=== PATIENT | male | born 1955 | race Caucasian/White ===

== ENCOUNTER → 2017-06-02 | Outpatient (CLI) | payer BC ==
[~2017-06-02] MED LIST: ATOR-24 PO; CALC625T13 PO; HYDC25 PO; IRBE-37 PO; METO50TA16 PO; STLS PO; ZNTT/150 PO
[2017-06-02 12:35] LABS: BASO % 0.2 %; BASO ABS # 0.02 K/uL (0-0.2); COMPLETE YES; EOS % 1.2 %; HEMATOCRIT 45.9 % (42-52); IG% 0.2 %; LYMPH % 44.2 %; LYMPH ABS # 3.91 K/uL (1.2-3.4); MEAN CELL VOLUME 92.9 fL (80-100); MEAN CORPUSCULAR HEMOGLOBIN 31.6 pg (25-34); MEAN PLATELET VOLUME 9.7 fL (7.4-10.4); MONO % 6.4 %; NEUT % 47.8 %; PLATELET COUNT 291 K/uL (130-400); RED BLOOD COUNT 4.94 M/uL (4.7-6.1); WHITE BLOOD COUNT 8.85 K/uL (4.8-10.8)
[2017-06-02 12:52] LABS: BLOOD UREA NITROGEN 12 mg/dl (7-18); GLUCOSE 94 mg/dl (70-99)
[2017-06-02 12:53] LABS: ALT/SGPT 37 U/L (12-78); BUN/CREATININE RATIO 13.5 (10-20); CALCIUM 8.5 mg/dl (8.5-10.1); CARBON DIOXIDE 25 mmol/L (21-32); CHLORIDE 107 mmol/L (98-107); CHOLESTEROL 142 mg/dl (0-200); CREATININE 0.92 mg/dl (0.60-1.40); POTASSIUM 3.7 mmol/L (3.5-5.1); SODIUM 139 mmol/L (136-145); TRIGLYCERIDES 252 mg/dl (0-150); VERY LOW DENSITY LIPOPROT CALC 50 mg/dl
[2017-06-02 12:55] LABS: ALKALINE PHOSPHATASE 84 U/L (45-117); AST/SGOT 20 U/L (15-37); CHOLESTEROL/HDL RATIO 3.9; HDL CHOLESTEROL 36 mg/dl; LDL CHOLESTEROL CALCULATED 56 mg/dl
[2017-06-02 12:58] LABS: ESTIMATED AVERAGE GLUCOSE 103 mg/dl; HA1C FLAG Normal (Normal)
== END | disposition home or self-care (01) ==
LOC: C.LABBFT 07:27
PROVIDERS: ATTEND Internal Medicine
DX: Z11.59 Encounter for screening for other viral diseases (principal); R73.03 Prediabetes; E78.00 Pure hypercholesterolemia, unspecified

== ENCOUNTER → 2017-06-16 | Outpatient (CLI) | payer BC ==
[~2017-06-16] MED LIST changes: +OPTIRAY 320 IV PRN
--- NOTE | 2017-06-16 13:07 | DIAGNOSTIC IMAGING REPORT ---
CT ABD/PELVIS IV AND ORAL CONT CLINICAL HISTORY: R10.11 Abdominal pain, RUQ (right upper quadrant)[id number] COMPARISON STUDY: 04/20/2014 TECHNIQUE: Following the IV administration of 120 mL of Optiray-320, CT scan of the abdomen and pelvis was performed from the lung bases to the proximal femurs. Images are reviewed in the axial, sagittal, and coronal planes. IV contrast was administered without complication. A dose lowering technique was utilized adhering to the principles of ALARA. CT DOSE: 1947.81 mGy.cm FINDINGS: Lower chest: There are mild basilar atelectatic changes present. Liver: There is mild hepatic steatosis. No focal masses are visualized. Gallbladder: Not visualized and presumed surgically absent Spleen: Normal in size and attenuation. Pancreas: Unremarkable. Adrenal glands: Unremarkable. Kidneys: There is symmetric renal cortical enhancement. The kidneys are normal in size without hydronephrosis. Bowel: There are no transition zones indicate bowel obstruction. There is colonic diverticulosis. There are no acute peridiverticular inflammatory changes. The appendix appears normal. There is a right upper quadrant bowel anastomotic suture line. Peritoneum: There is no intraperitoneal free air or abdominal ascites. There are postsurgical changes of a ventral hernia repair. There is a fat-containing peripherally calcified nodule within the central peritoneal fat. This appears smaller than on the prior study and consistent with an area of fat necrosis Vasculature: The abdominal aorta is normal in course and caliber. Adenopathy: None. Pelvic viscera: The bladder, and pelvic viscera are unremarkable. Skeletal structures: No destructive osseous lesions are seen. IMPRESSION: 1. No evidence of bowel obstruction. No evidence of free air 2. Normal appendix 3. Diverticulosis. No evidence of acute peridiverticular inflammatory change 3. Surgically absent gallbladder Electronically signed by: Best Weinberg M.D. 06/16/2017 1:06 PM Dictated Date/Time: 06/16/2017 1:03 PM
== END | disposition home or self-care (01) ==
LOC: C.CTS 11:56
PROVIDERS: ATTEND Internal Medicine
DX: R10.11 Right upper quadrant pain (principal); K57.90 Diverticulosis of intestine, part unspecified, without perforation or abscess without bleeding; Z90.49 Acquired absence of other specified parts of digestive tract

== ENCOUNTER → 2017-07-29 | Outpatient (CLI) | payer BC ==
[~2017-07-29] MED LIST changes: -OPTIRAY 320 IV PRN
== END | disposition home or self-care (01) ==
LOC: C.LABBFT 07:09
PROVIDERS: ATTEND Urology
DX: R97.20 Elevated prostate specific antigen [PSA] (principal)

== ENCOUNTER → 2017-09-15 | Outpatient (CLI) | payer BC ==
[~2017-09-15] MED LIST changes: +EZET10TA63 PO
--- NOTE | 2017-09-15 16:05 | DIAGNOSTIC IMAGING REPORT ---
RIBS BILATERAL WITH PA CHEST CLINICAL HISTORY: 62 years-old Male presenting with CHEST WALL PAIN. TECHNIQUE: Frontal and oblique views of the bilateral ribs as well as PA view of the chest were obtained. COMPARISON: Chest x-ray from 10/13/2011. FINDINGS: Cardiomediastinal silhouette normal. Lungs and pleural spaces clear. No displaced rib fracture. Osseous structures normal. Anastomotic suture line noted in the right mid abdomen. Surgical clips project over the epigastrium. IMPRESSION: 1. No acute cardiopulmonary disease. 2. No displaced rib fracture. Electronically signed by: Ramin Sánchez M.D. 09/15/2017 4:03 PM Dictated Date/Time: 09/15/2017 4:01 PM
== END | disposition home or self-care (01) ==
LOC: C.RADBC 15:29
PROVIDERS: ATTEND Physician Assistant
DX: R07.89 Other chest pain (principal)

== ENCOUNTER → 2017-09-17 | Outpatient (CLI) | payer BC ==
[~2017-09-17] MED LIST changes: -CALC625T13 PO; -IRBE-37 PO; +MELO7.5T5 PO; -STLS PO
== END | disposition home or self-care (01) ==
LOC: C.LABBFT 07:43
PROVIDERS: ATTEND Physician Assistant
DX: M25.50 Pain in unspecified joint (principal)

== ENCOUNTER → 2017-12-24 | Outpatient (CLI) | payer OTHER ==
[~2017-12-24] MED LIST changes: +RANI150T85 PO; -ZNTT/150 PO
== END | disposition home or self-care (01) ==
LOC: C.LABBFT 07:00
PROVIDERS: ATTEND Physician Assistant
DX: M79.1 Myalgia (principal); M25.50 Pain in unspecified joint